=== PATIENT | female | born 1965 ===

== ENCOUNTER 2018-06-03 22:36 | Emergency (ER) | payer SELFPAY ==
--- NOTE | 2018-06-04 01:42 | ED PDOC ---
HPI: Hypertension/Hypotension Time Seen by Provider: 06/04/18 00:56 Chief Complaint (Nursing): Anxiety Chief Complaint (Provider): Elevated Blood Pressure History Per: Patient History/Exam Limitations: no limitations Onset/Duration Of Symptoms: Hrs Current Symptoms Are (Timing): Still Present Additional Complaint(s): 52 y/o female with a PMhx of Hypothyroid and HTN presents to the ED for evaluation of elevated blood pressure for the past couple of days. Patient addit ionally notes of receiving bad news from [employer] this morning further stating that she had lost a relative prompting her to cry and get upset. Patient notes of having developed a headache. Patient reports of noticing an elevated blood pressure for the past few days despite being compliant with metropolol for blood pressure control. Patient states [place] has been in the [place] for approximately on [place] and has not established care with a provider in the [place]. Patient denies chest pain, shortness of breath, suicidal ideation and homicidal ideation PMD: no provider Past Medical History Reviewed: Historical Data, Nursing Documentation, Vital Signs Vital Signs: Last Vital Signs Temp 98.3 F 06/03/18 23:50 Pulse 81 06/03/18 23:50 Resp 16 06/03/18 23:50 BP 138/73 06/03/18 23:50 Pulse Ox 98 06/03/18 23:50 - Medical History PMH: HTN, Hyperthyroidism - Surgical History Surgical History: Cholecystectomy - Family History Family History: States: Unknown Family Hx - Allergies Allergies/Adverse Reactions: Allergies Allergy/AdvReac Type Severity Reaction Status Date / Time No Known Allergies Allergy Verified 06/03/18 23:53 Review of Systems ROS Statement: Except As Marked, All Systems Reviewed And Found Negative Constitutional: Positive for: Other (elevated blood pressure) Cardiovascular: Negative for: Chest Pain Respiratory: Negative for: Shortness of Breath Psych: Positive for: Anxiety. Negative for: Suicidal ideation Physical Exam - Reviewed Nursing Documentation Reviewed: Yes Vital Signs Reviewed: Yes - Physical Exam Appears: Positive for: No Acute Distress Head Exam: Positive for: ATRAUMATIC, NORMOCEPHALIC Skin: Positive for: Normal Color, Warm, Dry Eye Exam: Positive for: Normal appearance, EOMI, PERRL Neck: Positive for: Normal, Painless ROM Cardiovascular/Chest: Positive for: Regular Rate, Rhythm. Negative for: Murmur Respiratory: Positive for: Normal Breath Sounds. Negative for: Respiratory Distress Gastrointestinal/Abdominal: Positive for: Normal Exam, Soft. Negative for: Tenderness Extremity: Positive for: Normal ROM. Negative for: Deformity Neurological/Psych: Positive for: Awake, Alert, Oriented (x3), Mood/Affect (Anxious ), Other (tearful). Negative for: Motor/Sensory Deficits - Laboratory Results Result Diagrams: 06/04/18 01:35 06/04/18 01:35 - ECG O2 Sat by Pulse Oximetry: 98 (RA) Pulse Ox Interpretation: Normal - Progress Re-evaluation Time: 04:13 Condition: Re-examined, Improved Medical Decision Making Medical Decision Making: Time: 0122 Impression: HTN, grieving Differentials include but not limited to Uncontrolled HTN, Grieving reaction and complications of HTN. Plan: -- EKG -- BMP -- CBC with Differentials -- Motrin 400 mg PO Scribe Attestation: Documented by Rossi Ludwig, acting as a scribe Jonathan Fan MD. Provider Scribe Attestation: All medical record entries made by the Scribe were at my direction and persona lly dictated by me. I have reviewed the chart and agree that the record accurately reflects my personal performance of the history, physical exam, medical decision making, and the department course for this patient. I have also personally directed, reviewed, and agree with the discharge instructions and disposition. Disposition - Clinical Impression Clinical Impression: Hypertension, Grieving - Patient ED Disposition Is Patient to be Admitted: No Doctor Will See Patient In The: Office Counseled Patient/Family Regarding: Studies Performed, Diagnosis, Need For Followup - Disposition Referrals: [facility] [Outside] Disposition: Routine/Home Disposition Time: 04:13 Condition: GOOD Additional Instructions: PETER ARNOLD, thank you for letting us take care of you today. Your provider was Jaya Fan MD and you were treated for POSS HIGH BP. The emergency medical care you received today was directed at your acute symptoms. If you were prescribed any medication, please fill it and take as directed. It may take several days for your symptoms to resolve. Return to the Emergency Department if your symptoms worsen, do not improve, or if you have any other problems. Please contact your doctor or call one of the physicians/clinics you have been referred to that are listed on the Patient Visit Information form that is included in your discharge packet. Bring any paperwork you were given at discharge with you along with any medications you are taking to your follow up visit. Our treatment cannot replace ongoing medical care by a primary care pro vider outside of the emergency department. Thank you for allowing the [facility] team to be part of your care today. 1 week if you have not heard back. Instructions: High Blood Pressure in Adults, Dealing With , Adult Print Language: CROATIAN
[2018-06-04 01:53] LABS: BASO % 0.4 % (0.0-2.0); EOS % 0.3 % (0.0-4.0); HEMOGLOBIN 11.8 g/dL (12.0-16.0); LYMPH % 12.3 % (20.0-40.0); MEAN CELL VOLUME 88.5 fl (81.0-99.0); MEAN CORPUSCULAR HEMOGLOBIN 29.7 pg (27.0-31.0); MEAN CORPUSCULAR HGB CONC 33.6 g/dL (33.0-37.0); MEAN PLATELET VOLUME 9.8 fl (7.2-11.7); MONO # 0.5 K/uL (0.0-0.8); NEUT # 6.6 K/uL (1.8-7.0); RBC 3.98 Mil/uL (3.80-5.20); RED CELL DISTRIBUTION WIDTH 12.9 % (11.5-14.5); WHITE BLOOD COUNT 8.2 K/uL (4.8-10.8)
[2018-06-04 02:07] LABS: BLOOD UREA NITROGEN 18 mg/dl (7-17); CALCIUM 9.7 mg/dL (8.4-10.2); GFR NON-AFRICAN AMERICAN > 60
[2018-06-04 04:34] VITALS: BP 130/73; PULSE 56; RESP 14; TEMP 98.6
--- NOTE | 2018-06-04 09:22 | CARD ---
APPROVED REPORT Date of service: 06/04/2018 EKG Measurement Heart [id number] <Conclusion> Normal sinus rhythm Normal ECG
[2018-06-04 21:01] VITALS: O2SAT 98
== END 2018-06-04 04:45 | disposition home or self-care (01) ==
LOC: H.ER 22:36
DX: I10 Essential (primary) hypertension (principal); F43.21 Adjustment disorder with depressed mood